=== PATIENT | male | born 1980 | race Caucasian/White ===

== ENCOUNTER 2017-03-22 12:57 | Emergency (ER) | payer OTHER ==
[2017-03-22 13:34] VITALS: BP 127/83; PULSE 76; RESP 16; TEMP 99
--- NOTE | 2017-03-22 14:31 | ED ---
Lower Extremity Injury HPI - General Chief Complaint: Extremity Injury, Lower Stated Complaint: [facility]-Knee Pain Time Seen by Provider: 03/22/17 14:18 Source: patient, RN notes reviewed Mode of arrival: ambulatory Limitations: no limitations - History of Present Illness Initial Comments: 36-year-old male presents emergency Department chief complaint of left knee pain. Patient states that he has a history of tibial plateau fracture age 15. Patient states he states she's had no problems with it but states that today he has pain that he had passed and states it felt very swollen. Patient denies any trauma. He states it is worse when he is standing at work and cannot stand anymore. Patient does not seem local orthopedic doctor. Patient states surgery was performed michael cazares. Patient denies any redness or fever or chills. Patient states is a chronic numbness and tingling of his lower extremitie - Related Data Previous Rx's Medication Instructions Recorded Hydrocodone/Acetaminophen [[place] 1 tab PO Q6HR PRN #15 tab 03/22/17 5-325] Allergies Allergy/AdvReac Type Severity Reaction Status Date / Time No Known Allergies Allergy Verified 03/22/17 14:45 Review of Systems ROS Statement: Those systems with pertinent positive or pertinent negative responses have been documented in the HPI. ROS Other: All systems not noted in ROS Statement are negative. 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 Past Anesthesia/Blood Transfusion Reactions: No Reported Reaction Additional Past Anesthesia/Blood Transfusion Reaction / Comment(s): NEVER HAS HAD ANESTHESIA Past Psychological History: No Psychological Hx Reported Smoking Status: Current every day smoker Past Alcohol Use History: Occasional Past Drug Use History: None Reported - Past Family History Father Family Medical History: Hypertension General Exam Limitations: no limitations General appearance: alert, in no apparent distress Respiratory exam: Present: normal lung sounds bilaterally. Absent: respiratory distress, wheezes, rales, rhonchi, stridor Cardiovascular Exam: Present: regular rate, normal rhythm, normal heart sounds. Absent: systolic murmur, diastolic murmur, rubs, gallop, clicks Extremities exam: Present: other (Left knee there is old surgical scars noted, patient's full range of motion some pain with full extension there is no pain with valgus varus there is mild swelling noted pedal pulses equal bilaterally no warmth or redness to left knee) Neurological exam: Present: reflexes normal. Absent: motor sensory deficit Skin exam: Present: warm, dry, intact, normal color. Absent: rash Course Vital Signs 03/22/17 13:29 Temperature 99.0 F Pulse Rate 76 Respiratory 16 Rate Blood Pressure 127/83 O2 Sat by Pulse 98 Oximetry Medical Decision Making - Medical Decision Making 36-year-old male presented emergency from for left knee pain. Patient's had problems with it in the past secondary to tibial plateau fracture. Radiologist feels there may be a small loose body. Patient will follow-up with orthopedics patient will be given pain medication and discharged. Return parameters were discussed. Disposition Clinical Impression: Left knee pain, Loose body in knee Disposition: HOME SELF-CARE Condition: Stable Instructions: Knee Pain (ED) Additional Instructions: Please return to the Emergency Department if symptoms worsen or any other concerns. Prescriptions: Hydrocodone/Acetaminophen [[place] 5-325] 1 tab PO Q6HR PRN #15 tab PRN Reason: Pain Referrals: Tejas Motta MD [Primary Care Provider] - 1-2 days Lion Saini MD [STAFF PHYSICIAN] - 1-2 days Time of Disposition: 15:11
--- NOTE | 2017-03-22 14:44 | XR ---
EXAMINATION TYPE: XR knee complete LT DATE OF EXAM: 03/22/2017 COMPARISON: 08/16/2014 HISTORY: Pain TECHNIQUE: Four views are submitted. FINDINGS: Mild narrowing the medial compartment of the knee joint. Postsurgical change. No acute fracture. Smal l amount of fluid in the suprapatellar bursa. No dislocation. Small ossific density overlying the int ercondylar large may represent small loose body. IMPRESSION: 1. Cannot exclude a small loose body within the intercondylar notch. 2. Postsurgical changes.
== END 2017-03-22 15:31 | disposition home or self-care (01) ==
LOC: EC 12:57
DX: M23.42 Loose body in knee, left knee (principal); F17.200 Nicotine dependence, unspecified, uncomplicated; Z87.81 Personal history of (healed) traumatic fracture; Z98.890 Other specified postprocedural states
CPT/HCPCS: 99283

== ENCOUNTER → 2018-07-29 | Outpatient (CLI) | payer SELFPAY ==
--- NOTE | 2018-07-29 16:04 | XR ---
EXAMINATION TYPE: XR chest 2V DATE OF EXAM: 07/29/2018 COMPARISON: Prior chest x-ray 03/28/2014 HISTORY: Abnormal chest x-ray, sarcoid, chest pain TECHNIQUE: Frontal and lateral views of the chest are obtained. FINDINGS: Bilateral nodularity persists within the lungs. Cardiac mediastinal silhouette, pulmonary vascularity and [place] are not significantly changed. No pneumothorax or pleural effusion. IMPRESSION: Findings compatible with patient's history of sarcoidosis.
[2018-08-01 10:30] LABS: Alt. alternata IgE Class CLASS 0; Alternaria alternata IgE <0.35 kU/L (<0.35); Asperg. fumagatus IgE <0.35 kU/L (<0.35); Asperg. fumagatus IgE Class CLASS 0; Bermuda Grass IgE <0.35 kU/L (<0.35); Birch(Com.Silvr) IgE <0.35 kU/L (<0.35); Birch(Com.Silvr) IgE Class CLASS 0; Cat Epith & Dander IgE <0.35 kU/L (<0.35); Cat Epith & Dander IgE Class CLASS 0; Clad herbarum IgE <0.35 kU/L (<0.35); Cockroach IgE <0.35 kU/L (<0.35); Cottonwood IgE <0.35 kU/L (<0.35); Dermato. Pteronyssinus IgE <0.35 kU/L (<0.35); Dermato. farinae IgE <0.35 kU/L (<0.35); Dermato. farinae IgE Class CLASS 0; Dog Dander IgE <0.35 kU/L (<0.35); Elm IgE <0.35 kU/L (<0.35); Maple (Box Elder) IgE <0.35 kU/L (<0.35); Maple (Box Elder) IgE Class CLASS 0; Mountain Cedar IgE <0.35 kU/L (<0.35); Mountain Cedar IgE Class CLASS 0; Mouse Urine IgE Class CLASS 0; Nettle IgE <0.35 kU/L (<0.35); Nettle IgE Class CLASS 0; Oak IgE <0.35 kU/L (<0.35); Penicillium notatum IgE Class CLASS 0; Rough Marshelder IgE <0.35 kU/L (<0.35); Rough Marshelder IgE Class CLASS 0; Timothy Grass IgE <0.35 kU/L (<0.35); White Ash IgE Class CLASS 0
== END | disposition home or self-care (01) ==
LOC: LABWHC1 12:26
PROVIDERS: ATTEND Internal Medicine Sleep Medicine
DX: R07.9 Chest pain, unspecified (principal); B44.81 Allergic bronchopulmonary aspergillosis; Z87.09 Personal history of other diseases of the respiratory system
CPT/HCPCS: 36415; 71046; 82785; 86001; 86003; 86606; 86609

== ENCOUNTER → 2018-08-20 | Outpatient (CLI) | payer OTHER ==
[2018-08-20 14:22] LABS: Basophils % (A) 0 %; Eosinophils # (A) 0.2 k/uL (0-0.7); Eosinophils % (A) 2 %; HCT 46.2 % (39.0-53.0); HGB 15.1 gm/dL (13.0-17.5); Lymphocytes % (A) 10 %; MCH 30.4 pg (25.0-35.0); MCHC 32.6 g/dL (31.0-37.0); MCV 93.3 fL (80.0-100.0); Mean Platelet Volume 7.8; Monocytes # (A) 0.5 k/uL (0-1.0); Monocytes % (A) 5 %; Neutrophils # (A) 8.1 k/uL (1.3-7.7); Neutrophils % (A) 82 %; Platelet Count 209 k/uL (150-450); RBC 4.96 m/uL (4.30-5.90); RDW 13.2 % (11.5-15.5); WBC 9.9 k/uL (3.8-10.6)
[2018-08-20 14:39] LABS: INR 1.1 (<1.2); Partial Thromboplastin Time 23.3 sec (22.0-30.0); Prothrombin Time 10.4 sec (9.0-12.0)
[2018-08-20 22:38] LABS: Albumin 4.4 g/dL (3.80-4.90); Albumin/Globulin Ratio 2.1 (1.20-2.10); Anion Gap 4.4 mmol/L (4.00-12.00); Calcium 9.4 mg/dL (8.7-10.3); Carbon Dioxide 28.6 mmol/L (21.6-31.8); Globulin 2.1 g/dL (2.1-3.7); Potassium 4.4 mmol/L (3.5-5.5); Total Bilirubin 0.9 mg/dL (0.3-1.2); Total Protein 6.5 g/dL (6.2-8.2)
== END ==
LOC: LABMAIN 12:56
PROVIDERS: ATTEND Internal Medicine Sleep Medicine
DX: J45.50 Severe persistent asthma, uncomplicated (principal); D86.9 Sarcoidosis, unspecified
CPT/HCPCS: 36415; 80053; 82164; 85025; 85610; 85730

== ENCOUNTER → 2018-09-06 | Outpatient (CLI) | payer OTHER ==
--- NOTE | 2018-09-06 22:50 | CT ---
EXAMINATION TYPE: CT chest w con DATE OF EXAM: 09/06/2018 COMPARISON: 03/07/2014 HISTORY: 38-year-old male chest discomfort, hx of sarcoidosis TECHNIQUE: Contiguous axial scanning of the chest after the administration of 100 mL of Isovue 300. Coronal/sagittal reconstructions performed. CT DLP: 385.1mGycm. Automatic exposure control utilized for a dose reduction. FINDINGS: There are normal size without pericardial effusion. Aorta normal caliber with conventional arch vessel branching anatomy. Redemonstrated mediastinal and bilateral hilar lymphadenopathy which show partial calcification. This lymphadenopathy is overall stable with severe right paratracheal lymph node measuring up to 1.0 cm, lower right paratracheal lymph node 1.7 cm, right tracheobronchial angle lymph node 1.9 cm, subcarina l 1.7 cm. The lymphadenopathy has not significantly progressed from prior exam. Trace bilateral gynecomastia. Right greater than left pulmonary nodularity is present. Much of this nodularity is subpleural and pe ripheral, possible interstitial. Nodules are too numerous to count but limited to an upper to midlung predominance, again, right greater than left. Many of the nodules are slightly larger, such as in th e right upper lobe axial image 27 now measuring 1.3 cm versus 1.2 cm, previously, and right midlung n ear the minor fissure measuring 1.3 cm, axial image 28 vs 7 mm, previously. New nodules are also pres ent on both sides. Nodule at the left mid lung now measures 1.6 cm versus nonconfluent 6 mm and small er nodularity and 2014. Peripheral left basilar subpleural pulmonary nodule, axial image 43 measures 1 cm versus 6 mm, previously. No cystic parenchymal changes. Visualized upper abdomen shows some more prominent upper abdominal lymph nodes measuring up to 1.1 cm in the para-aortic region versus 8 mm, previously and 8 mm left mesenteric, axial image 75, relative ly similar. Spleen upper limits of normal in size at 13.6 cm. Adrenal glands appear relatively clear. Bones: No osseous destructive process. IMPRESSION: 1. Calcified and noncalcified mediastinal and hilar lymphadenopathy measuring up to 1.7 cm relatively similar to 2014. Findings suggest prior granulomatous disease with atypical fungal/mycobacterial inf ections and sarcoidosis among some of the differential considerations. 2. Bilateral pulmonary nodules redemonstrated, right greater than left with an upper to mid lung pred ominance. There are some new nodules and some of the previous nodules are larger, measuring up to 1.6 cm now. A relatively indolent course from 2014 suggests a benign infectious/inflammatory process rat her than neoplasm. 3. Mild upper abdominal lymphadenopathy measuring up to 1.1 cm, slightly increased from 2014. Similar differential considerations as stated above.
== END | disposition home or self-care (01) ==
LOC: RADCTMAIN 16:35
PROVIDERS: ATTEND Internal Medicine Sleep Medicine
DX: R91.8 Other nonspecific abnormal finding of lung field (principal); R59.1 Generalized enlarged lymph nodes; J45.50 Severe persistent asthma, uncomplicated; D86.9 Sarcoidosis, unspecified
CPT/HCPCS: 71260; Q9967

== ENCOUNTER → 2018-09-15 | Outpatient (CLI) | payer OTHER ==
[2018-09-15 17:33] LABS: HCT 43.7 % (39.0-53.0); HGB 15.1 gm/dL (13.0-17.5); MCH 32.3 pg (25.0-35.0); MCHC 34.6 g/dL (31.0-37.0); MCV 93.4 fL (80.0-100.0); Mean Platelet Volume 8.1; Platelet Count 195 k/uL (150-450); RBC 4.68 m/uL (4.30-5.90); RDW 13.5 % (11.5-15.5); WBC 5.9 k/uL (3.8-10.6)
[2018-09-15 18:47] LABS: Erythrocyte Sedimentation Rate 2 mm/hr (0-15)
[2018-09-16 02:53] LABS: ALT 26 U/L (10-49); AST 23 U/L (14-35); Albumin/Globulin Ratio 2.42 (1.20-2.10); Alkaline Phosphatase 59 U/L (41-126); C Reactive Protein <0.4 mg/dL (0.0-0.8); Calcium 9.3 mg/dL (8.7-10.3); Carbon Dioxide 27.6 mmol/L (21.6-31.8); Chloride 105 mmol/L (96-109); Globulin 1.9 g/dL (2.1-3.7); Glucose 85 mg/dL (70-110); Sodium 139 mmol/L (135-145); Total Bilirubin 1.1 mg/dL (0.3-1.2); Total Protein 6.5 g/dL (6.2-8.2)
== END | disposition home or self-care (01) ==
LOC: LABWHC1 16:31
PROVIDERS: ATTEND Internal Medicine Sleep Medicine
DX: D86.9 Sarcoidosis, unspecified (principal)
CPT/HCPCS: 36415; 80053; 82009; 85027; 85652; 86140

== ENCOUNTER 2021-11-08 22:46 | Emergency (ER) | payer OTHER ==
[2021-11-08 22:55] VITALS: BP 120/70; PULSE 90; RESP 18; TEMP 98.1
[2021-11-08] MEDS ORDERED: ACET/COD 300 MG/30 MG STARTER PACK 6 TAB BTL PO STA (23:00)
[2021-11-08] MEDS ORDERED: KETOROLAC 15 MG/ML 1 ML VIAL IM STA (23:00)
--- NOTE | 2021-11-08 23:03 | ED ---
Lower Extremity Injury HPI - General Chief Complaint: Extremity Injury, Lower Stated Complaint: LT knee injury Time Seen by Provider: 11/08/21 22:56 Source: patient Mode of arrival: wheelchair - History of Present Illness Initial Comments: 41 year-old male patient presents to the emergency department for evaluation of left knee pain after slip and fall. Injury occurred about 1.5 hours ago. States he slipped and landed right on the left knee. States that he is having difficulty moving it and significant pain. Reports history of tibial plateau fracture to the same leg. Did have surgery at [facility] and had plates and screws placed. He denies hitting his head or losing consciousness with the fall. Denies any neck or back pain. Denies any other known injuries. Has not taken anything for pain. - Related Data Previous Rx's Medication Instructions Recorded Hydrocodone/Acetaminophen [[place] 1 tab PO Q6HR PRN #15 tab 03/22/17 5-325] Allergies Allergy/AdvReac Type Severity Reaction Status Date / Time No Known Allergies Allergy Verified 11/08/21 22:55 Review of Systems ROS Statement: Those systems with pertinent positive or pertinent negative responses have been documented in the HPI. ROS Other: All systems not noted in ROS Statement are negative. 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 Past Anesthesia/Blood Transfusion Reactions: No Reported Reaction Additional Past Anesthesia/Blood Transfusion Reaction / Comment(s): NEVER HAS HAD ANESTHESIA Past Psychological History: No Psychological Hx Reported Smoking Status: Never smoker Past Alcohol Use History: Occasional Past Drug Use History: None Reported - Past Family History Father Family Medical History: Hypertension General Exam General appearance: alert, in no apparent distress, other (This is a well- developed, well-nourished adult male in no acute distress.) Respiratory exam: Present: normal lung sounds bilaterally. Absent: respiratory distress, wheezes, rales, rhonchi, stridor Cardiovascular Exam: Present: regular rate, normal rhythm, normal heart sounds. Absent: systolic murmur, diastolic murmur, rubs, gallop, clicks GI/Abdominal exam: Present: soft, normal bowel sounds. Absent: distended, tenderness, guarding, rebound, rigid Extremities exam: Present: full ROM, tenderness (Left anterior knee), normal capillary refill, other (Left knee soft tissue swelling and erythema. Full flexion and extension with pain. Skin is otherwise pink, warm, dry. Cap refill less than 3 seconds. Pedal and posttibial pulses 2+.). Absent: normal inspection, pedal edema, joint swelling, calf tenderness Neurological exam: Present: alert, oriented X3, CN II-XII intact Psychiatric exam: Present: normal affect, normal mood Skin exam: Present: warm, dry, intact, normal color. Absent: rash Course Vital Signs 11/08/21 22:51 Temperature 98.1 F Pulse Rate 90 Respiratory 18 Rate Blood Pressure 120/70 O2 Sat by Pulse 97 Oximetry Medical Decision Making - Medical Decision Making 41-year-old male patient presented for evaluation of left knee pain after soap and fall. Physical examination did reveal soft tissue swelling and erythema. He did have full range of motion though with pain. Neurovascular status is intact. X-ray of the left knee is obtained and is negative. I did discuss findings and results with him. I was going to give him a knee immobilizer but he does have 2 of these at home and declined receiving a new one here. He does have crutches. He'll be discharged to follow-up with his critical care specialist for further evaluation as soon as possible. Return parameters were discussed in detail. He verbalizes understanding and agrees with this plan. My attending is Dr. Garza. - Radiology Data Radiology results: report reviewed, image reviewed 3 views of the left knee are obtained. Report was reviewed in its entirety. Impression by Dr. Min shows no acute abnormality of the left knee. No change. Disposition Clinical Impression: Left knee injury Disposition: HOME SELF-CARE Condition: Good Instructions (If sedation given, give patient instructions): Knee Pain (ED) Additional Instructions: Use immobilizer for support when walking. Take medication as directed for pain relief. Rest, ice, elevate the leg. Follow-up with your surgeon for further evaluation as soon as possible. Return to the emergency department for any new, worsening, or concerning symptoms. Is patient prescribed a controlled substance at d/c from ED?: No Referrals: Tejas Motta MD [Primary Care Provider] - 1-2 days Time of Disposition: 23:38
--- NOTE | 2021-11-08 23:30 | XR ---
EXAMINATION TYPE: XR knee complete LT DATE OF EXAM: 11/08/2021 COMPARISON: 03/22/2017 HISTORY: Knee pain TECHNIQUE: 3 views FINDINGS: There is a plate with screws fixing the medial tibial condyle. I see no acute fracture nor dislocation. Joint spaces are fairly normal. There is no evidence of joint effusion. IMPRESSION: No acute abnormality of the left knee. No change.
== END 2021-11-08 23:44 | disposition home or self-care (01) ==
LOC: EC 22:46
DX: S89.92XA Unspecified injury of left lower leg, initial encounter (principal); W01.0XXA Fall on same level from slipping, tripping and stumbling without subsequent striking against object, initial encounter
CPT/HCPCS: 73562; 99284; 96372; J1885

== ENCOUNTER → 2023-05-03 | Outpatient (CLI) | payer OTHER ==
--- NOTE | 2023-05-04 08:39 | XR ---
EXAMINATION TYPE: XR chest 2V DATE OF EXAM: 05/03/2023 COMPARISON: 1026 CT TECHNIQUE: PA and lateral views submitted. HISTORY: Pain FINDINGS: The lungs are clear and there is no pneumothorax, pleural effusion, or focal pneumonia. Heart size normal and no overt failure. Osseous structures intact. Subsegmental linear changes are improved within the right upper lobe. IMPRESSION: 1. No acute process. Multinodular pattern in the right upper lobe stable or improved from prior exam. Prior CT report of multiple pulmonary nodules.
--- NOTE | 2023-05-04 08:42 | XR ---
EXAMINATION TYPE: XR hand complete RT DATE OF EXAM: 05/03/2023 COMPARISON: 05/29/2011 HISTORY: Pain TECHNIQUE: Three views are submitted. FINDINGS: The osseous structures are intact. The joint spaces are preserved and there is no acute fracture or dislocation. Chronic deformity base fifth metacarpal suggests remote trauma. IMPRESSION: 1. No definite acute fracture or dislocation if symptoms persist, follow-up study in 7 to 10 days wo uld be suggested
== END | disposition home or self-care (01) ==
LOC: RADXRMAIN 16:29
PROVIDERS: ATTEND Family Medicine
DX: M79.641 Pain in right hand (principal); R07.9 Chest pain, unspecified
CPT/HCPCS: 71046

== ENCOUNTER 2023-11-21 14:22 | Emergency (ER) | payer OTHER ==
[2023-11-21 14:58] VITALS: TEMP 98
[2023-11-21] MEDS: MECLIZINE 12.5 MG TAB PO STA (15:19)
[2023-11-21] MEDS: SODIUM CHLORIDE 0.9% 1,000 ML IV STA (15:19)
[2023-11-21 15:28] LABS: Basophils % (A) 0 %; Eosinophils # (A) 0.2 k/uL (0-0.7); Eosinophils % (A) 2 %; HCT 49.4 % (39.0-53.0); HGB 16.6 gm/dL (13.0-17.5); Lymphocytes # (A) 1.3 k/uL (1.0-4.8); Lymphocytes % (A) 14 %; MCH 32.7 pg (25.0-35.0); MCHC 33.6 g/dL (31.0-37.0); MCV 97.4 fL (80.0-100.0); Monocytes # (A) 0.4 k/uL (0-1.0); Monocytes % (A) 4 %; Neutrophils # (A) 7.4 k/uL (1.3-7.7); Neutrophils % (A) 78 %; Platelet Count 198 k/uL (150-450); RBC 5.07 m/uL (4.30-5.90); RDW 12.9 % (11.5-15.5); WBC 9.5 k/uL (3.8-10.6)
--- NOTE | 2023-11-21 15:30 | ED ---
Dizziness HPI - General Chief Complaint: Dizziness Stated Complaint: light headed Time Seen by Provider: 11/21/23 14:43 Source: patient, RN notes reviewed Mode of arrival: ambulatory Limitations: no limitations - History of Present Illness Initial Comments: This is a 43-year-old male who presents to the emergency department for dizziness. States that this started yesterday. He feels off balance like he is having difficulty walking with some associated nausea. Symptoms are worse when he turns his head or tries to move and states that this is similar to a spinning sensation. States that he feels like his head is full pressure and going to "explode", however he is not having any headaches. Denies any history of similar symptoms in the past. Denies any chest pain, shortness of breath, or URI symptoms. MD Complaint: dizziness - Related Data Previous Rx's Medication Instructions Recorded Hydrocodone/Acetaminophen [[place] 1 tab PO Q6HR PRN #15 tab 03/22/17 5-325] Meclizine [Antivert] 25 mg PO QID PRN #30 tab 11/21/23 Metoclopramide [Reglan] 10 mg PO Q6H PRN #30 tab 11/21/23 Allergies Allergy/AdvReac Type Severity Reaction Status Date / Time No Known Allergies Allergy Verified 11/21/23 14:38 Review of Systems ROS Statement: Those systems with pertinent positive or pertinent negative responses have been documented in the HPI. ROS Other: All systems not noted in ROS Statement are negative. 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 Past Anesthesia/Blood Transfusion Reactions: No Reported Reaction Additional Past Anesthesia/Blood Transfusion Reaction / Comment(s): NEVER HAS HAD ANESTHESIA Past Psychological History: No Psychological Hx Reported Smoking Status: Current every day smoker Past Alcohol Use History: Occasional Past Drug Use History: Marijuana - Past Family History Father Family Medical History: Hypertension General Exam Limitations: no limitations General appearance: alert, in no apparent distress Head exam: Present: atraumatic, normocephalic, normal inspection ENT exam: Present: TM's normal bilaterally, normal external ear exam Respiratory exam: Present: normal lung sounds bilaterally. Absent: respiratory distress, wheezes, rales, rhonchi, stridor Cardiovascular Exam: Present: regular rate, normal rhythm, normal heart sounds. Absent: systolic murmur, diastolic murmur, rubs, gallop, clicks Neurological exam: Present: alert, oriented X3, CN II-XII intact Psychiatric exam: Present: normal affect, normal mood Skin exam: Present: warm, dry, intact, normal color. Absent: rash Course Vital Signs 11/21/23 11/21/23 14:36 17:37 Temperature 98 F Pulse Rate 72 74 Respiratory 20 18 Rate Blood Pressure 149/99 147/80 O2 Sat by Pulse 100 97 Oximetry Medical Decision Making - Medical Decision Making This is a 43 year old male who presents to the emergency department for dizziness. Was pt. sent in by a medical professional or institution? @ -No Did you speak to anyone other than the patient for history? @ -No Did you review nursing and triage notes? @ -Yes, and I agree, it is accurate with regards to the patient's symptoms. Were old charts reviewed? @ -No Differential Diagnosis? @ -Differential Dizziness: Benign paroxysmal positional Vertigo, Menieres disease, otitis media, acoustic neuroma, vertebrobasilar insufficiency, cerebellar stroke, encephalitis, hypovolemic, arrhythmia, coronary artery syndrome, anemia, this is not meant to be an all-inclusive list EKG interpreted by me (3pts min.)? @ -EKG interpreted by me demonstrating the following: Sinus rhythm. Ventricular rate 60 bpm, RI interval 173 ms, QRS duration 106 ms, QTC 401 ms. X-rays interpreted by me (1pt min.)? @ -Not obtained CT interpreted by me (1pt min.)? @ -CT scan of the brain obtained. My interpretation identifies no evidence of an acute intracranial hemorrhage. U/S interpreted by me (1pt. min.)? @ -Not obtained What testing was considered but not performed? (CT, X-rays, U/S, labs)? Why? @ -None What meds were considered but not given? Why? @ -None Did you discuss the management of the patient with other professionals? @ -No Did you reconcile home meds? @ -No Was smoking cessation discussed for >3mins.? @ -I discussed smoking cessation for greater than 3 minutes. The risk of smoking were discussed with the patient including but not limited to risks of cancer, stroke, coronary artery disease and COPD. Also discussed with patient were multiple methods of quitting smoking. Lastly we discussed the financial cost of smoking. Was critical care preformed (if so, how long)? @ -No Were there social determinants of health that impacted care today? How? (Homelessness, low income, unemployed, alcoholism, drug addiction, transportation, low edu. Level, literacy, decrease access to med. care, care home, rehab)? @ -No Was there de-escalation of care discussed even if they declined? (Discuss DNR or withdrawal of care, Hospice)? @ -No What co-morbidities impacted this encounter? (DM, HTN, Smoking, COPD, CAD, Cancer, CVA, Hep., AIDS, mental health diagnosis, sleep apnea, morbid obesity)? @ -Smoking Was patient admitted / discharged? @ -Discharged. HINTS exam is negative. Lab work obtained and found to be u nremarkable. CT scan of the brain obtained revealing no acute process. COVID, influenza, and RSV testing are negative. Discussed with the patient that symptoms are likely related to BPPV. He was initially given IV fluids and Meclizine without substantial improvement symptoms. He was then given Reglan and a scopolamine patch, which he found much more beneficial. At that point, symptoms had improved substantially and he felt stable for discharge home. Prescription for meclizine and Reglan provided with dosing instructions reviewed. Also advised the half somersault maneuver as an additional treatment option. Patient discharged home in stable condition and advised to follow-up with his primary care provider. Undiagnosed new problem with uncertain prognosis? @ -None Drug Therapy requiring intensive monitoring for toxicity (Heparin, Nitro, Insulin, Cardizem)? @ -None Were any procedures done? @ -None Diagnosis/symptom? @ -BPPV Acute, or Chronic, or Acute on Chronic? @ -Acute Uncomplicated (without systemic symptoms) or Complicated (systemic symptoms)? @ -Uncomplicated Side effects of treatment? @ -None Exacerbation, Progression, or Severe Exacerbation] @ -Not applicable Poses a threat to life or bodily function? @ -No Return precautions reviewed in depth, the patient is instructed to return to the emergency department with any new, worsening, or concerning symptoms. Patient verbalized understanding. This case was discussed in detail with the attending ED physician, Dr. Felton. Presentation, findings, and treatment plan discussed in detail as well. - Lab Data Result diagrams: 11/21/23 15:10 11/21/23 15:10 Lab Results 11/21/23 11/21/23 11/21/23 Range/Units 15:10 15:10 15:10 WBC 9.5 (3.8-10.6) k/uL RBC 5.07 (4.30-5.90) m/uL Hgb 16.6 (13.0-17.5) gm/dL Hct 49.4 (39.0-53.0) % MCV 97.4 (80.0-100.0) fL MCH 32.7 (25.0-35.0) pg MCHC 33.6 (31.0-37.0) g/dL RDW 12.9 (11.5-15.5) % Plt Count 198 (150-450) k/uL MPV 8.0 Neutrophils % 78 % Lymphocytes % 14 % Monocytes % 4 % Eosinophils % 2 % Basophils % 0 % Neutrophils # 7.4 (1.3-7.7) k/uL Lymphocytes # 1.3 (1.0-4.8) k/uL Monocytes # 0.4 (0-1.0) k/uL Eosinophils # 0.2 (0-0.7) k/uL Basophils # 0.0 (0-0.2) k/uL Sodium 138 (137-145) mmol/L Potassium 4.3 (3.5-5.1) mmol/L Chloride 109 H (98-107) mmol/L Carbon Dioxide 25 (22-30) mmol/L Anion Gap 4 mmol/L BUN 16 (9-20) mg/dL Creatinine 0.73 (0.66-1.25) mg/dL Est GFR (CKD-EPI)AfAm >90 (>60 ml/min/1.73 sqM) Est GFR (CKD-EPI)NonAf >90 (>60 ml/min/1.73 sqM) Glucose 103 H (74-99) mg/dL Calcium 9.1 (8.4-10.2) mg/dL Magnesium 2.2 (1.6-2.3) mg/dL Total Bilirubin 1.3 (0.2-1.3) mg/dL AST 25 (17-59) U/L ALT 24 (4-49) U/L Alkaline Phosphatase 58 (38-126) U/L Troponin I <0.012 (0.000-0.034) ng/mL Total Protein 6.8 (6.3-8.2) g/dL Albumin 4.2 (3.5-5.0) g/dL Influenza Type A (PCR) (Not Detectd) Influenza Type B (PCR) (Not Detectd) RSV (PCR) (Not Detectd) SARS-CoV-2 (PCR) (Not Detectd) 11/21/23 Range/Units 15:10 WBC (3.8-10.6) k/uL RBC (4.30-5.90) m/uL Hgb (13.0-17.5) gm/dL Hct (39.0-53.0) % MCV (80.0-100.0) fL MCH (25.0-35.0) pg MCHC (31.0-37.0) g/dL RDW (11.5-15.5) % Plt Count (150-450) k/uL MPV Neutrophils % % Lymphocytes % % Monocytes % % Eosinophils % % Basophils % % Neutrophils # (1.3-7.7) k/uL Lymphocytes # (1.0-4.8) k/uL Monocytes # (0-1.0) k/uL Eosinophils # (0-0.7) k/uL Basophils # (0-0.2) k/uL Sodium (137-145) mmol/L Potassium (3.5-5.1) mmol/L Chloride (98-107) mmol/L Carbon Dioxide (22-30) mmol/L Anion Gap mmol/L BUN (9-20) mg/dL Creatinine (0.66-1.25) mg/dL Est GFR (CKD-EPI)AfAm (>60 ml/min/1.73 sqM) Est GFR (CKD-EPI)NonAf (>60 ml/min/1.73 sqM) Glucose (74-99) mg/dL Calcium (8.4-10.2) mg/dL Magnesium (1.6-2.3) mg/dL Total Bilirubin (0.2-1.3) mg/dL AST (17-59) U/L ALT (4-49) U/L Alkaline Phosphatase (38-126) U/L Troponin I (0.000-0.034) ng/mL Total Protein (6.3-8.2) g/dL Albumin (3.5-5.0) g/dL Influenza Type A (PCR) Not Detected (Not Detectd) Influenza Type B (PCR) Not Detected (Not Detectd) RSV (PCR) Not Detected (Not Detectd) SARS-CoV-2 (PCR) Not Detected (Not Detectd) - Radiology Data Radiology results: report reviewed, image reviewed Disposition Clinical Impression: BPPV (benign paroxysmal positional vertigo), Nicotine dependence Disposition: HOME SELF-CARE Instructions (If sedation given, give patient instructions): Vertigo (ED), B enign Paroxysmal Positional Vertigo (ED) Additional Instructions: Return to the emergency department with any new, worsening, or concerning symptoms. You can take the meclizine up to 4 times daily as needed for any additional episodes of dizziness/vertigo. If that is not effective, you can also take Reglan up to every 6 hours as needed for dizziness/vertigo or dian sea/vomiting. Look up the half somersault maneuver by Dr. Cindy Perez online for additional treatment options. Follow up with your primary care provider in 1-2 days. Prescriptions: Meclizine [Antivert] 25 mg PO QID PRN #30 tab PRN Reason: Vertigo Metoclopramide [Reglan] 10 mg PO Q6H PRN #30 tab PRN Reason: Nausea And Vomiting Is patient prescribed a controlled substance at d/c from ED?: No Referrals: Tejas Motta MD [Primary Care Provider] - 1-2 days Time of Disposition: 17:29
--- NOTE | 2023-11-21 15:35 | CT ---
EXAMINATION TYPE: CT brain wo con CT DLP: 1124.4 mGycm, Automated exposure control for dose reduction was used. DATE OF EXAM: 11/21/2023 3:15 PM COMPARISON: 02/04/2014. CLINICAL INDICATION:Male, 43 years old with history of Dizziness, Ataxia, TECHNIQUE: Brain: Axial CT images of the brain were obtained with coronal and sagittal reformats created and rev iewed. Contrast used: None. Oral contrast used: None. FINDINGS: Brain: Extra-axial spaces: No abnormal extra-axial fluid collections. Ventricular system: Within normal limits Cerebral parenchyma: No acute intraparenchymal hemorrhage or mass effect. The johnson-white junction is well differentiated. Cerebellum: Unremarkable. Mass effect: No evidence of midline shift. Intracranial vasculature: unremarkable Soft tissues: Normal. Calvarium/osseous structures: No depressed skull fracture. Paranasal sinuses and mastoid air cells: Mild scattered paranasal sinus disease. Visualized orbits: Orbital contents are intact. IMPRESSION: No acute intracranial process.
[2023-11-21 15:41] LABS: ALT 24 U/L (4-49); AST 25 U/L (17-59); African American GFR (CKD) >90 (>60 ml/min/1.73 sqM); Albumin 4.2 g/dL (3.5-5.0); Alkaline Phosphatase 58 U/L (38-126); Anion Gap 4 mmol/L; Blood Urea Nitrogen 16 mg/dL (9-20); Calcium 9.1 mg/dL (8.4-10.2); Carbon Dioxide 25 mmol/L (22-30); Chloride 109 mmol/L (98-107); Glucose 103 mg/dL (74-99); Magnesium 2.2 mg/dL (1.6-2.3); Non-African American GFR(CKD) >90 (>60 ml/min/1.73 sqM); Potassium 4.3 mmol/L (3.5-5.1); Sodium 138 mmol/L (137-145); Total Bilirubin 1.3 mg/dL (0.2-1.3); Total Protein 6.8 g/dL (6.3-8.2)
[2023-11-21] MEDS: SCOPOLAMINE 1 MG/72 HR PATCH TRANSDERM STA (16:32)
[2023-11-21] MEDS: METOCLOPRAMIDE 5 MG/ML 2 ML VIAL IVP STA (16:32)
[2023-11-21 17:45] VITALS: BP 147/80; PULSE 74; RESP 18
== END 2023-11-21 17:39 | disposition home or self-care (01) ==
LOC: EC 14:22
DX: H81.10 Benign paroxysmal vertigo, unspecified ear (principal); F17.210 Nicotine dependence, cigarettes, uncomplicated; F12.90 Cannabis use, unspecified, uncomplicated; Z20.822 Contact with and (suspected) exposure to COVID-19
CPT/HCPCS: 36415; 93005; 80053; 83735; 84484; 85025; 87636; 70450; 99406; 99284; 96374; 96361; J2765

== ENCOUNTER 2024-02-26 13:49 | Emergency (ER) | payer OTHER ==
[2024-02-26 14:12] VITALS: PULSE 86
[2024-02-26] MEDS: PROPARACAINE 0.5% OPHTH DROPS 15 ML BTL RIGHT EYE STA (14:15)
--- NOTE | 2024-02-26 15:21 | ED ---
General Adult HPI - General Chief complaint: Eye Problems Stated complaint: Foreign obj. in R eye Time Seen by Provider: 02/26/24 14:09 Source: patient, RN notes reviewed, old records reviewed Mode of arrival: ambulatory - History of Present Illness Initial comments: 43-year-old male with suspected foreign body in the right eye. Patient was grinding metal. He did have safety glasses but states that he believes he got a piece of metal in his right eye this occurred yesterday. He had a piece of metal in his eye Wednesday of this past week which was removed by the optometri st and the patient was placed on erythromycin ointment which she is currently on. He states his tetanus is up-to-date. - Related Data Previous Rx's Medication Instructions Recorded Hydrocodone/Acetaminophen [[place] 1 tab PO Q6HR PRN #15 tab 03/22/17 5-325] Meclizine [Antivert] 25 mg PO QID PRN #30 tab 11/21/23 Metoclopramide [Reglan] 10 mg PO Q6H PRN #30 tab 11/21/23 Allergies Allergy/AdvReac Type Severity Reaction Status Date / Time No Known Allergies Allergy Verified 11/21/23 14:38 Review of Systems ROS Statement: Those systems with pertinent positive or pertinent negative responses have been documented in the HPI. ROS Other: All systems not noted in ROS Statement are negative. 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 L hand surgery (thumb) Past Anesthesia/Blood Transfusion Reactions: No Reported Reaction Additional Past Anesthesia/Blood Transfusion Reaction / Comment(s): NEVER HAS HAD ANESTHESIA Past Psychological History: No Psychological Hx Reported Smoking Status: Current every day smoker Past Alcohol Use History: Occasional Past Drug Use History: Marijuana - Past Family History Father Family Medical History: Hypertension General Exam General appearance: alert, in no apparent distress Head exam: Present: atraumatic, normocephalic Eye exam: Present: PERRL, EOMI, other (Metallic foreign body at the 2 o'clock position right cornea). Absent: conjunctival injection ENT exam: Present: normal exam Neck exam: Present: normal inspection Respiratory exam: Present: normal lung sounds bilaterally. Absent: respiratory distress Cardiovascular Exam: Present: regular rate, normal rhythm GI/Abdominal exam: Present: soft. Absent: distended, tenderness Course Vital Signs 02/26/24 13:52 Temperature 98.8 F Pulse Rate 86 Respiratory 16 Rate Blood Pressure 163/94 O2 Sat by Pulse 99 Oximetry Procedures - Forgein Body Removal Eye Site: Right Location in eye(s): Right eye Anesthetic Used: Proparacaine Eye Exam Technique: Field Lamp, Fluorescein Foreign Body Suspected: Metal Forgein Body Removal Technique: [place] Remaining Debris: No (Appears to be completely removed) Patient Tolerated: well Medical Decision Making - Medical Decision Making Was pt. sent in by a medical professional or institution (, [facility], DISK RECOATER, urgent care, hospital, or fci...) When possible be specific @ -No Did you speak to anyone other than the patient for history (EMS, parent, family, police, friend...)? What history was obtained from this source @ -No Did you review nursing and triage notes (agree or disagree)? Why? @ -I reviewed and agree with nursing and triage notes Were old charts reviewed (outside hosp., previous admission, EMS record, old EKG, old radiological studies, urgent care reports/EKG's, fci records)? Report findings @ -No old charts were reviewed Differential Diagnosis 40 laceration, corneal foreign body, corneal abrasion, intraocular foreign body EKG interpreted by me (3pts min.). @ -As above X-rays interpreted by me (1pt min.). @ -None done CT interpreted by me (1pt min.). @ -None done U/S interpreted by me (1pt. min.). @ -None done What testing was considered but not performed or refused? (CT, X-rays, U/S, labs)? Why? @ -None What meds were considered but not given or refused? Why? @ -None Did you discuss the management of the patient with other professionals (professionals i.e. [facility]KI Bass, DISK RECOATER, lab, RT, psych nurse, clinical social work aide, chief pilot, teacher, soil science technical officer, nurse case management)? Give summary @ -No Was smoking cessation discussed for >3mins.? @ -No Was critical care preformed (if so, how long)? @ -No Were there social determinants of health that impacted care today? How? (Homelessness, low income, unemployed, alcoholism, drug addiction, transportation, low edu. Level, literacy, decrease access to med. care, care home, rehab)? @ -No Was there de-escalation of care discussed even if they declined (Discuss DNR or withdrawal of care, Hospice)? DNR status @ -No What co-morbidities impacted this encounter? (DM, HTN, Smoking, COPD, CAD, Cancer, CVA, ARF, Chemo, Hep., AIDS, mental health diagnosis, sleep apnea, morbid obesity)? @ -None Was patient admitted / discharged? Hospital course, mention meds given and route, prescriptions, significant lab abnormalities, going to OR and other pertinent info. @ -43-year-old male with metallic foreign body in the right eye. This was removed with Godwin brush and appears to be completely removed. Patient is currently on antibiotic ointment which was prescribed for a different metallic foreign body from several days prior. Patient's tetanus is up-to-date, will follow with his eye doctor. Undiagnosed new problem with uncertain prognosis? @ -No Drug Therapy requiring intensive monitoring for toxicity (Heparin, Nitro, Insulin, Cardizem)? @ -No Were any procedures done? @ -Yes, foreign body removed from the right eye Diagnosis/symptom? @ -Corneal foreign body, corneal abrasion Acute, or Chronic, or Acute on Chronic? @Acute Uncomplicated (without systemic symptoms) or Complicated (systemic symptoms)? @ -Default Side effects of treatment? @ -No Exacerbation, Progression, or Severe Exacerbation? @ -No Poses a threat to life or bodily function? How? (Chest pain, [place], MA, pneumonia, PE, COPD, DKA, ARF, appy, cholecystitis, CVA, Diverticulitis, Homicidal, Suicidal, threat to staff... and all critical care pts) @ -No Disposition Clinical Impression: Corneal abrasion, Corneal foreign body Disposition: HOME SELF-CARE Condition: Good Instructions (If sedation given, give patient instructions): Eye Foreign Body (ED), Abrasion (ED) Is patient prescribed a controlled substance at d/c from ED?: No Referrals: Tejas Motta MD [Primary Care Provider] - 1-2 days Time of Disposition: 15:21
[2024-02-26 15:50] VITALS: BP 156/89; RESP 18; TEMP 98.4
== END 2024-02-26 15:57 | disposition home or self-care (01) ==
LOC: EC 13:49
DX: S05.01XA Injury of conjunctiva and corneal abrasion without foreign body, right eye, initial encounter (principal); F17.200 Nicotine dependence, unspecified, uncomplicated; F12.90 Cannabis use, unspecified, uncomplicated; W45.8XXA Other foreign body or object entering through skin, initial encounter
CPT/HCPCS: 65220; 99283